=== PATIENT | male | born 1995 | race Caucasian/White ===

== ENCOUNTER 2018-12-10 21:44 | Emergency (ER) | payer OTHER ==
[~2018-12-10] VITALS: Ht 170.2 cm; Wt 70.8 kg
[2018-12-10 21:49] VITALS: Ht 170.2 cm; Wt 70.8 kg
[2018-12-10 22:50] VITALS: BP 136/91
== END 2018-12-10 22:50 | disposition home or self-care (01) ==
LOC: ED 21:44
DX: K08.89 Other specified disorders of teeth and supporting structures (principal)
CPT/HCPCS: J1885

== ENCOUNTER 2019-04-25 22:02 | Emergency (ER) | payer SELFPAY ==
[~2019-04-25] VITALS: Ht 172.7 cm; Wt 68.0 kg
[2019-04-25 22:11] VITALS: BP 131/88; Ht 172.7 cm; Wt 68.0 kg
== END 2019-04-25 23:09 | disposition home or self-care (01) ==
LOC: ED 22:02
DX: S60.112A Contusion of left thumb with damage to nail, initial encounter (principal); W23.0XXA Caught, crushed, jammed, or pinched between moving objects, initial encounter; Y93.89 Activity, other specified; Y92.810 Car as the place of occurrence of the external cause; Y99.8 Other external cause status